=== PATIENT | female | born 1955 | race Caucasian/White ===

== ENCOUNTER 2017-09-28 09:08 | Day surgery (SDC) | payer MEDICARE, MEDICAID ==
[~2017-09-28 09:08] MED LIST: Lactated Ringers 1,000 ML IV SCH; Lidocaine 1%/Sod Bicarbonate in NS 8.4% 1 ML Syringe IV PRN; Sodium Chloride 0.9% 10 ML Syringe FLUSH PRN
[2017-09-28] MEDS ORDERED: Bupivacaine 0.25% 30 ML SDV ONE (09:47)
[2017-09-28] MEDS ORDERED: Triamcinolone Acetonide 40 MG/ML 1 ML MDV ONE (09:47)
--- NOTE | 2017-09-28 10:28 | PCM.PREANE ---
Preanesthetic Assessment - Anesthesia/Transfusion/Family Hx Anesthesia History: Prior Anesthesia Reaction (nausea) Family History of Anesthesia Reaction: No Transfusion History: No Prior Transfusion(s) - Review of Systems General: No Symptoms Pulmonary: No Symptoms Cardiovascular: No Symptoms Gastrointestinal: No Symptoms Neurological: No Symptoms, Numbness (carpal tunnel) Other: Reports: Thyroid Problems (hypo) - Physical Assessment NPO Status Date: 09/27/17 NPO Status Time: 20:00 Pulse: 82 O2 Sat by Pulse Oximetry: 98 Respiratory Rate: 10 Blood Pressure: 105/68 Temperature: 37.2 C Vital Signs: Last Vital Signs Temp 37.2 C 09/28/17 09:15 Pulse 82 09/28/17 09:15 Resp 10 L 09/28/17 09:15 BP 105/68 09/28/17 09:15 Pulse Ox 98 09/28/17 09:15 Height: 1.52 m Weight: 64.864 kg ASA Class: 2 Mental Status: Alert & Oriented x3 Airway Class: Mallampati = 1 Dentition: Reports: Normal Dentition Thyro-Mental Finger Breadths: 3 Mouth Opening Finger Breadths: 3 ROM/Head Extension: Limited/Partial (left side bulging disks) Lungs: Clear to Auscultation, Normal Respiratory Effort Cardiovascular: Regular Rate, Regular Rhythm, No Murmurs - Lab Values: Laboratory Last Values MRSA (PCR) Negative 09/22/17 09:46 - Allergies Allergies/Adverse Reactions: Allergies Allergy/AdvReac Type Severity Reaction Status Date / Time chocolate Allergy Abdominal Uncoded 09/28/17 10:16 Pain - Blood Blood Available: No Product(s) Available: None - Anesthesia Plan Pre-Op Medication Ordered: None - Acknowledgements Anesthesia Type Planned: VICTOR HUGO Pt an Appropriate Candidate for the Planned Anesthesia: Yes Alternatives and Risks of Anesthesia Discussed w Pt/Guardian: Yes Pt/Guardian Understands and Agrees with Anesthesia Plan: Yes PreAnesthesia Questionnaire HEENT History: Reports: Other (See Below) Other HEENT History: sinus infection, transient retinal artery occlusion Cardiovascular History: Reports: High Cholesterol Respiratory History: Reports: Asthma, Other (See Below) Other Respiratory History: bronchitits, dypsnea, shortness of breath Gastrointestinal History: Reports: Chronic Constipation, Irritable Bowel Syndrome, Other (See Below) Other Gastrointestinal History: epigastric pain, increased liver enzymes Genitourinary History: Reports: None 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: Other (See Below) Other OB/BYN History: atrophic vaginitis, genital herpes Musculoskeletal History: Reports: Back Pain, Chronic, Other (See Below) Other Musculoskeletal History: cervical disc bulge, chronic shoulder pain, myofascial pain, neck pain, right thumb pain Neurological History: Reports: Other (See Below) Other Neuro History: head trauma, vertigo Psychiatric History: Reports: Anxiety, Depression Endocrine/Metabolic History: Reports: Diabetes, Type II, Hypothyroidism Hematologic History: Reports: None Immunologic History: Reports: None Oncologic (Cancer) History: Reports: None Dermatologic History: Reports: Other (See Below) Other Dermatologic History: seborrheic keratosis, oral hepres simplex - Past Surgical History Head Surgeries/Procedures: Reports: None Cardiovascular Surgical History: Reports: None Respiratory Surgical History: Reports: None GI Surgical History: Reports: Cholecystectomy Female Surgical History: Reports: None Male Surgical History: Reports: None Endocrine Surgical History: Reports: None Neurological Surgical History: Reports: None Musculoskeletal Surgical History: Reports: Shoulder Surgery Oncologic Surgical History: Reports: None - SUBSTANCE USE Smoking Status *Q: Never Smoker Tobacco Use Within Last Twelve Months: No Second Hand Smoke Exposure: No Days Per Week of Alcohol Use: 1 Number of Drinks Per Day: 1 Total Drinks Per Week: 1 Recreational Drug Use History: No - HOME MEDS Home Medications: Home Meds Albuterol/Ipratropium [Combivent Respimat] 2 puff INH QID PRN 09/27/17 [History] Amitriptyline [Elavil] 10 mg PO BEDTIME 09/27/17 [History] Cholecalciferol (Vitamin D3) [Vitamin D3] 400 units PO DAILY 09/27/17 [History] Citalopram Hydrobromide [Celexa] 40 mg PO DAILY 09/27/17 [History] Cyclobenzaprine [Flexeril] 10 mg PO TID PRN 09/27/17 [History] Dicyclomine Hcl [IJD: Dicyclomine] 20 mg PO TID PRN 09/27/17 [History] Estradiol [Estrace 0.01% Vaginal Crm] 1 applic VAG Q48H 09/27/17 [History] Famciclovir 250 mg PO BID 09/27/17 [History] Lidocaine [Lidocaine 5% Paraben-Free] 1 patch TOP DAILY 09/27/17 [History] Lutein/Zeaxanthin [Lutein-Zeaxanthin 25-5 mg Sfgl] 1 cap PO DAILY 09/27/17 [ History] Magnesium 400 mg PO DAILY 09/27/17 [History] Omeprazole 20 mg PO DAILY 09/27/17 [History] Triamcinolone Acetonide [Triamcinolone Acetonide 0.1% Crm] 1 dose TOP TID PRN [History] atorvaSTATin [Lipitor] 20 mg PO DAILY 09/27/17 [History] buPROPion [Wellbutrin SR] 100 mg PO DAILY 09/27/17 [History] clonazePAM [Clonazepam] 1 mg PO BID 09/27/17 [History] Hydrocodone/Acetaminophen [Shelbiana 5-325 Tablet] 1 - 2 each PO Q6H PRN #10 tablet 09/28/17 [Rx] - CURRENT (IN HOUSE) MEDS Current Meds: Current Medications Lactated Ringer's (Ringers, Lactated) 1,000 mls @ 125 mls/hr IV ASDIRECTED RONNY Stop: 09/28/17 23:00 Lidocaine/Sodium Bicarbonate (Buffered Lidocaine 1% In Ns 8.4%) 0.25 ml IV ONETIME PRN PRN Reason: Prior to IV Start Stop: 09/28/17 18:00 Sodium Chloride (Saline Flush) 10 ml FLUSH ASDIRECTED PRN PRN Reason: Keep Vein Open Stop: 09/28/17 18:00 Discontinued Medications Bupivacaine HCl (Marcaine 0.25%) Confirm Administered Dose 30 ml .ROUTE .STK- MED ONE Stop: 09/28/17 09:48 Triamcinolone Acetonide (Kenalog-40) Confirm Administered Dose 40 mg .ROUTE .STK -MED ONE Stop: 09/28/17 09:48
[2017-09-28] MEDS ORDERED: Scopolamine 1 MG Transdermal Patch TOP ONE (10:45)
[2017-09-28] MEDS ORDERED: Lidocaine 0.5% 50 ML SDV ONE (12:22)
[2017-09-28] MEDS ORDERED: Sodium Bicarbonate 8.4% 50 MEQ/50 ML SDV ONE (12:22)
[2017-09-28] MEDS ORDERED: fentaNYL 100 MCG/2 ML SDV ONE (12:23)
[2017-09-28] MEDS ORDERED: Midazolam 1 MG/ML 2 ML SDV ONE (12:24)
[2017-09-28] MEDS ORDERED: Propofol 200 MG/20 ML SDV ONE (12:25)
--- NOTE | 2017-09-28 13:20 | PCM48HPAN ---
Post Anesthesia Note - EVALUATION WITHIN 48HRS OF ANESTHETIC Vital Signs in Normal Range: Yes Patient Participated in Evaluation: Yes Respiratory Function Stable: Yes Airway Patent: Yes Cardiovascular Function Stable: Yes Hydration Status Stable: Yes Pain Control Satisfactory: Yes Nausea and Vomiting Control Satisfactory: Yes Mental Status Recovered: Yes
--- NOTE | 2017-10-04 12:49 | PCM.OPNOTE ---
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
--- NOTE | 2017-10-04 13:20 | OR ---
DATE OF OPERATION: 09/28/2017 SURGEON: Luke Ruelas MD OPERATIVE PROCEDURE: Right carpal tunnel release with right basilar thumb joint injection. PREOPERATIVE DIAGNOSIS: Right median nerve compression neuropathy with right basilar thumb joint pain. POSTOPERATIVE DIAGNOSIS: Right median nerve compression neuropathy with right basilar thumb joint pain. ANESTHESIA: Regional Blue block. ANESTHESIA PROVIDER: Arnoldo Damon CRNA. HAND FOLDER: Jeniffer Shultz PA-C. ESTIMATED BLOOD LOSS: 5 mL. COMPLICATIONS: None. CONDITION: Stable. DESCRIPTION OF PROCEDURE: The patient was identified in the preoperative holding area. Proper site was marked and identified by the surgeon. The patient was taken back to the operating theater where after adequate anesthesia, the patient's right upper extremity was sterilely prepped and draped in the usual sterile fashion. OR time-out was performed. The patient did receive 2 g IV antibiotics. At this time, a standard incision was made using Castillo's cardinal line and ulnar border of the fourth digit. At this point, blunt dissection was taken down to the palmar cutaneous fascia. Palmar cutaneous fascia was incised. The transverse carpal ligament was then incised. Jeremiah elevator was placed deep to this and the transverse carpal ligament was then released all the way distally just stopping short of palmar arch. At this time, it was found to be adequately released. At this time, attention was turned proximally and was used the tenotomy scissors with the tips pointed ulnarly to protect the palmar cutaneous branch of the median nerve. The superficial forearm fascia as well as transverse carpal ligament was released. It was found to be released both proximally and distally. At this time, adequate saline was irrigated through the wound. A 4-0 nylon simple suture was used for closure of the skin. A sterile soft dressing was applied. The patient did also have a basilar thumb joint injection at the right wrist, under sterile technique, 1 mL of 40 mg Kenalog, and 1 mL of 0.25% Marcaine were injected at the right basilar thumb joint. The patient tolerated it well and will follow up in clinic. OPERATION PERFORMED: MMODAL /[id number]
== END 2017-09-28 14:45 | disposition home or self-care (01) ==
LOC: JD.SDS 09:08
PROVIDERS: ATTEND Orthopaedic Surgery
DX: G56.01 Carpal tunnel syndrome, right upper limb (principal); E11.9 Type 2 diabetes mellitus without complications; J01.90 Acute sinusitis, unspecified; E03.9 Hypothyroidism, unspecified; F41.9 Anxiety disorder, unspecified; J45.909 Unspecified asthma, uncomplicated; N95.2 Postmenopausal atrophic vaginitis; F32.9 Major depressive disorder, single episode, unspecified; A60.00 Herpesviral infection of urogenital system, unspecified; E78.00 Pure hypercholesterolemia, unspecified; K59.09 Other constipation; Z91.018 Allergy to other foods; Z79.899 Other long term (current) drug therapy; Z90.49 Acquired absence of other specified parts of digestive tract
CPT/HCPCS: 20600; 64721; 87641; A9270; J2250; J3010; J3301; J3490; J7120; 01810; J2704

== ENCOUNTER 2017-10-31 06:36 | Day surgery (SDC) | payer MEDICARE, MEDICAID ==
[~2017-10-31 06:36] MED LIST changes: +Albuterol 0.083% 2.5 MG/3 ML Neb Soln NEB SCH; -Lactated Ringers 1,000 ML IV SCH; +Lidocaine 1%/Sod Bicarbonate in NS 8.4% 1 ML Syringe IDERM PRN; -Lidocaine 1%/Sod Bicarbonate in NS 8.4% 1 ML Syringe IV PRN
[2017-10-31] MEDS ORDERED: Sodium Chloride 0.9% 50 ML SDV ONE (07:05)
[2017-10-31] MEDS ORDERED: Lidocaine 1% with EPINEPHrine 1:100,000 20 ML MDV ONE (07:05)
[2017-10-31] MEDS: Lactated Ringers 1,000 ML IV SCH ×2 (07:15→12:39)
[2017-10-31] MEDS ORDERED: Scopolamine 1 MG Transdermal Patch TOP ONE (07:24)
[2017-10-31] MEDS ORDERED: Lidocaine 1% 4 ML ONE (07:30)
[2017-10-31] MEDS ORDERED: Rocuronium 50 MG/5 ML Vial ONE (07:30)
[2017-10-31] MEDS ORDERED: Ondansetron 4 MG/2 ML SDV ONE (07:30)
--- NOTE | 2017-10-31 07:30 | PCM.PREANE ---
Preanesthetic Assessment - Anesthesia/Transfusion/Family Hx Anesthesia History: Prior Anesthesia Reaction (nausea) Type of Anesthesia Reaction: Excessive Nausea/Vomiting Family History of Anesthesia Reaction: No Transfusion History: No Prior Transfusion(s) - Review of Systems General: No Symptoms Pulmonary: No Symptoms Cardiovascular: No Symptoms Gastrointestinal: No Symptoms, Other (IBS) Neurological: No Symptoms Other: Reports: Diabetes (pre), Neck Pain (left neck pain- 2 bulging discs) - Physical Assessment NPO Status Date: 10/30/17 NPO Status Time: 20:30 Pulse: 71 O2 Sat by Pulse Oximetry: 93 Respiratory Rate: 16 Blood Pressure: 113/83 Temperature: 98.9 F Height: 5 ft Weight: 66 kg ASA Class: 2 Mental Status: Alert & Oriented x3 Airway Class: Mallampati = 1 Dentition: Reports: Normal Dentition Thyro-Mental Finger Breadths: 3 Mouth Opening Finger Breadths: 3 ROM/Head Extension: Limited/Partial (not turn to left) Lungs: Clear to Auscultation, Normal Respiratory Effort Cardiovascular: Regular Rate, Regular Rhythm - Lab Values: 10/19/17 Hgb 14.2 Plt 284 Lytes WNL BUN 18 Cr 1.2 - Allergies Allergies/Adverse Reactions: Allergies Allergy/AdvReac Type Severity Reaction Status Date / Time No Known Allergies Allergy Verified 10/30/17 14:09 - Blood Blood Available: Yes - Acknowledgements Anesthesia Type Planned: General Anesthesia Pt an Appropriate Candidate for the Planned Anesthesia: Yes Alternatives and Risks of Anesthesia Discussed w Pt/Guardian: Yes Pt/Guardian Understands and Agrees with Anesthesia Plan: Yes PreAnesthesia Questionnaire HEENT History: Reports: Other (See Below) Other HEENT History: sinus infection, transient retinal artery occlusion, glasses Cardiovascular History: Reports: High Cholesterol Respiratory History: Reports: Asthma, Other (See Below) Other Respiratory History: bronchitits, dypsnea, shortness of breath, mold exposure Gastrointestinal History: Reports: Chronic Constipation, GERD, Irritable Bowel Syndrome, Other (See Below) Other Gastrointestinal History: acute epigastric pain, increased liver enzymes Genitourinary History: Reports: None 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 (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 Below) Other OB/BYN History: atrophic vaginitis, genital herpes, , atrophic vaginitis, post menopausal bleeding, pelvic pain Musculoskeletal History: Reports: Back Pain, Chronic, Other (See Below) Other Musculoskeletal History: cervical disc bulge, chronic shoulder pain, myofascial pain, neck pain, right thumb pain Neurological History: Reports: Other (See Below) Other Neuro History: head trauma, vertigo, cervical disc bulge Psychiatric History: Reports: Anxiety, Depression Endocrine/Metabolic History: Reports: Diabetes, Type II, Hypothyroidism Hematologic History: Reports: None Immunologic History: Reports: None Oncologic (Cancer) History: Reports: None Dermatologic History: Reports: Other (See Below) Other Dermatologic History: seborrheic keratosis, oral hepres simplex - Past Surgical History Head Surgeries/Procedures: Reports: None Cardiovascular Surgical History: Reports: None Respiratory Surgical History: Reports: None GI Surgical History: Reports: Cholecystectomy, Colonoscopy Female Surgical History: Reports: None Male Surgical History: Reports: None Endocrine Surgical History: Reports: None Neurological Surgical History: Reports: None Musculoskeletal Surgical History: Reports: Shoulder Surgery, Other (See Below) Other Musculoskeletal Surgeries/Procedures:: carpal tunnel surgery Oncologic Surgical History: Reports: None Dermatological Surgical History: Reports: None - SUBSTANCE USE Smoking Status *Q: Never Smoker Tobacco Use Within Last Twelve Months: No Second Hand Smoke Exposure: Yes Days Per Week of Alcohol Use: 1 (or less) Number of Drinks Per Day: 1 Total Drinks Per Week: 1 Recreational Drug Use History: No - HOME MEDS Home Medications: Home Meds Albuterol/Ipratropium [Combivent Respimat] 2 puff INH QID PRN 09/27/17 [History] Amitriptyline [Elavil] 10 mg PO BEDTIME 09/27/17 [History] Cholecalciferol (Vitamin D3) [Vitamin D3] 400 units PO DAILY 09/27/17 [History] Citalopram Hydrobromide [Celexa] 40 mg PO DAILY 09/27/17 [History] Cyclobenzaprine [Flexeril] 10 mg PO TID PRN 09/27/17 [History] Dicyclomine Hcl [IJD: Dicyclomine] 20 mg PO TID PRN 09/27/17 [History] Estradiol [Estrace 0.01% Vaginal Crm] 1 applic VAG Q72H 09/27/17 [History] Famciclovir 250 mg PO BID 09/27/17 [History] Lidocaine [Lidocaine 5% Paraben-Free] 1 patch TOP DAILY 09/27/17 [History] Lutein/Zeaxanthin [Lutein-Zeaxanthin 25-5 mg Sfgl] 1 cap PO DAILY 09/27/17 [ History] Magnesium 400 mg PO DAILY 09/27/17 [History] Omeprazole 20 mg PO DAILY 09/27/17 [History] Triamcinolone Acetonide [Triamcinolone Acetonide 0.1% Crm] 1 dose TOP TID PRN [History] atorvaSTATin [Lipitor] 20 mg PO DAILY 09/27/17 [History] clonazePAM [Clonazepam] 1 mg PO BID 09/27/17 [History] Cyanocobalamin (Vitamin B-12) [Vitamin B-12] 1,000 mcg PO DAILY 10/30/17 [ History] Hydrocodone/Acetaminophen [Hydrocodon-Acetaminophn 10-325] 0.5 tab PO BID PRN [History] Levothyroxine Sodium 88 mcg PO DAILY 10/30/17 [History] Montelukast [Singulair] 10 mg PO DAILY 10/30/17 [History] - CURRENT (IN HOUSE) MEDS Current Meds: Current Medications Albuterol (Proventil Neb Soln) 2.5 mg NEB ONETIME RONNY Stop: 10/31/17 16:00 Lactated Ringer's (Ringers, Lactated) 1,000 mls @ 125 mls/hr IV ASDIRECTED RONNY Stop: 10/31/17 23:00 Lidocaine/Sodium Bicarbonate (Buffered Lidocaine 1% In Ns 8.4%) 0.25 ml IDERM ONETIME PRN PRN Reason: Prior to IV Start Stop: 10/31/17 18:00 Sodium Chloride (Saline Flush) 10 ml FLUSH ASDIRECTED PRN PRN Reason: Keep Vein Open Stop: 10/31/17 18:00 Discontinued Medications Cefazolin Sodium (Ancef) Confirm Administered Dose 2 gm .ROUTE .STK-MED ONE Stop: 10/31/17 07:32 Dexamethasone (Dexamethasone) Confirm Administered Dose 20 mg .ROUTE .STK-MED ONE Stop: 10/31/17 07:32 Fentanyl (Sublimaze) Confirm Administered Dose 250 mcg .ROUTE .STK-MED ONE Stop: 10/31/17 07:32 Lidocaine HCl (Xylocaine-Mpf 1%) Confirm Administered Dose 4 mls @ as directed .ROUTE .STK-MED ONE Stop: 10/31/17 07:31 Ketorolac Tromethamine (Toradol) Confirm Administered Dose 30 mg .ROUTE .STK- MED ONE Stop: 10/31/17 07:32 Lidocaine/Epinephrine (Xylocaine 1% With Epinephrine 1:100,000) Confirm Administered Dose 20 ml .ROUTE .STK-MED ONE Stop: 10/31/17 07:06 Midazolam HCl (Versed 1 Mg/Ml) Confirm Administered Dose 2 mg .ROUTE .STK-MED ONE Stop: 10/31/17 07:32 Ondansetron HCl (Zofran) Confirm Administered Dose 4 mg .ROUTE .STK-MED ONE Stop: 10/31/17 07:31 Propofol (Diprivan 20 Ml) Confirm Administered Dose 200 mg .ROUTE .STK-MED ONE Stop: 10/31/17 07:32 Rocuronium Decherd (Zemuron) Confirm Administered Dose 50 mg .ROUTE .STK-MED ONE Stop: 10/31/17 07:31 Sodium Chloride (Normal Saline) Confirm Administered Dose 50 ml .ROUTE .[employer]-MED ONE Stop: 10/31/17 07:06
[2017-10-31] MEDS ORDERED: Ketorolac 30 MG/ML SDV ONE (07:31)
[2017-10-31] MEDS ORDERED: fentaNYL 250 MCG/5 ML SDV ONE (07:31)
[2017-10-31] MEDS ORDERED: Midazolam 1 MG/ML 2 ML SDV ONE (07:31)
[2017-10-31] MEDS ORDERED: Dexamethasone 4 MG/ML 5 ML MDV ONE (07:31)
[2017-10-31] MEDS ORDERED: Propofol 200 MG/20 ML SDV ONE (07:31)
[2017-10-31] MEDS ORDERED: ceFAZolin 1 GM Vial ONE (07:31)
[2017-10-31] MEDS ORDERED: Meperidine PF 50 MG/ML Syringe IVPUSH PRN (08:06)
[2017-10-31] MEDS ORDERED: fentaNYL 100 MCG/2 ML SDV IVPUSH PRN (08:06)
[2017-10-31] MEDS ORDERED: HYDROmorphone 0.5 MG/0.5 ML Syringe IVPUSH PRN (08:06)
[2017-10-31] MEDS ORDERED: Ondansetron 4 MG/2 ML SDV IVPUSH PRN (08:06)
[2017-10-31] MEDS ORDERED: Lactated Ringers 1,000 ML ONE (08:39)
[2017-10-31] MEDS ORDERED: Glycopyrrolate 0.2 MG/ML SDV ONE (08:54)
[2017-10-31] MEDS ORDERED: Neostigmine Methylsulfate 10 MG/10 ML MDV ONE (08:54)
--- NOTE | 2017-10-31 09:05 | PCM.OPNOTE ---
- General Post-Op/Procedure Note Date of Surgery/Procedure: 10/31/17 Operative Procedure(s): Total vaginal hysterectomy bilateral salpingo- oophorectomy 82179 Pre Op Diagnosis: Postmenopausal bleeding N95.0 Post-Op Diagnosis: Same Anesthesia Technique: General ET Tube Primary Surgeon: Vitaliy Calix Secondary Surgeon: Andre Garduno Anesthesia Provider: Kyrie Taylor Group Product Manager: Ayan Hinton Reason Group Product Manager Was Necessary: Difficult nature of surgery, provide retraction, decrease comorbidity and co- mortality Role of Group Product Manager: Difficult nature of surgery, provide retraction, decrease comorbidity and co- mortality Fluid Replacement, Intraop: 1,000 Output, Urine Amount: 200 EBL in mLs: 100 Drain/Tube Comments:: None Complications: None Condition: Good Free Text/Narrative:: Intake & Output 10/30/17 10/31/17 10/31/17 22:59 06:59 14:59 Output Total 150 Balance -150 Patient was placed under general anesthesia with endotracheal intubation in the low dorsal lithotomy position and prepared and draped in a sterile fashion. SCDs in place and functioning prior surgery. Ancef 2 g given intravenously prior surgery. Uterus was grasped with double-tooth tenaculum and 20 mL of 0.25 % lidocaine with epinephrine injected in multiple confluent areas around the cervix. The uterus was circumscribed and utilizing moist opened up 4 x 4 tissue pushed cephalad posterior colpotomy was performed without difficulty. Utilizing the LigaSure the uterosacral cardinal ligament bundle on the left side was crossclamped activated and incised same procedure carried out in the right side. Proceeding in a pedicle fashion cephalad crossclamping activating incising until the triple pedicle was approximated. The fundus of the uterus and the drum posteriorly and crossclamping the triple pedicle with Javier clamps and incising the uterus was removed. Grasping the left tube and ovary and crossclamping the infundibulopelvic ligament with the LigaSure activating and incising hemostasis was normal. Same procedure carried out on the right side. The uterus cervix tubes and ovaries removed without difficulty. Examination of the areas of the infundibulopelvic ligament showed no bleeding. The posterior cuff was closed with a running locking suture of 0 Monocryl. Hemostasis was again evaluated and found no bleeding. The infundibulopelvic ligament area showed no bleeding bilaterally. Sponge, needle, sharp, packs and 4 x 4's were counted and correct 2. The anterior cuff was approximated to the posterior cuff utilizing 0 Monocryl running locking suture. Patient was transported postanesthesia care unit in satisfactory condition. No blood transfusions were required. FAMILY members present to discuss surgery results with.. Prescription for Percocet 5/325 dispense 15 sig 1 by mouth every 6 hours when necessary pain.
--- NOTE | 2017-10-31 09:25 | PCM.POSTAN ---
POST ANESTHESIA ASSESSMENT - MENTAL STATUS Mental Status: Alert, Oriented - VITAL SIGNS Pulse Rate: 105 SaO2: 93 Resp Rate: 19 Blood Pressure: 123/61 Temperature: 98.2 F - RESPIRATORY Respiratory Status: Respiratory Rate WNL, Airway Patent, O2 Saturation Stable, Supplemental Oxygen - CARDIOVASCULAR CV Status: Pulse Rate WNL, Blood Pressure Stable - GASTROINTESTINAL GI Status: No Symptoms - PAIN Pain Score: 0 - POST OP HYDRATION Hydration Status: Adequate & Stable
[2017-10-31] MEDS: Acetaminophen/oxyCODONE 325-5 MG Tab PO PRN ×2 (10:30→12:43)
--- NOTE | 2017-10-31 13:12 | PCM48HPAN ---
Post Anesthesia Note - EVALUATION WITHIN 48HRS OF ANESTHETIC Vital Signs in Normal Range: Yes Patient Participated in Evaluation: Yes Respiratory Function Stable: Yes Airway Patent: Yes Cardiovascular Function Stable: Yes Hydration Status Stable: Yes Pain Control Satisfactory: Yes Nausea and Vomiting Control Satisfactory: Yes Mental Status Recovered: Yes Pulse Rate: 105 Resp Rate: 16 Temperature: 98.2 F Blood Pressure: 123/61
== END 2017-10-31 14:50 | disposition home or self-care (01) ==
LOC: EDBD 06:36 → JD.SDS 06:36
PROVIDERS: ATTEND Obstetrics & Gynecology
DX: D25.9 Leiomyoma of uterus, unspecified (principal); N80.0 Endometriosis of uterus; J45.909 Unspecified asthma, uncomplicated; F41.9 Anxiety disorder, unspecified; F32.9 Major depressive disorder, single episode, unspecified; E03.9 Hypothyroidism, unspecified; E11.9 Type 2 diabetes mellitus without complications; E78.5 Hyperlipidemia, unspecified; Z91.018 Allergy to other foods; Z79.899 Other long term (current) drug therapy; Z72.0 Tobacco use
CPT/HCPCS: 36415; 58262; 86850; 86900; 86901; 94640; A9270; J0690; J1100; J1885; J2250; J2405; J2710; J3010; J3490; J7120; 00944; 88307; J2001; J2704

== ENCOUNTER 2018-01-04 07:22 | Day surgery (SDC) | payer MEDICARE, MEDICAID ==
[~2018-01-04 07:22] MED LIST changes: -Albuterol 0.083% 2.5 MG/3 ML Neb Soln NEB SCH; +Ketamine 500 mg/10 ML MDV ONE; +Lactated Ringers 1,000 ML IV SCH; +Lidocaine 0.5% 50 ML SDV ONE; +Lidocaine 1% 4 ML ONE; +Midazolam 1 MG/ML 2 ML SDV ONE; +Ondansetron 4 MG/2 ML SDV ONE; +Propofol 200 MG/20 ML SDV ONE; +Sodium Bicarbonate 8.4% 50 MEQ/50 ML SDV ONE; +fentaNYL 100 MCG/2 ML SDV ONE
[2018-01-04] MEDS ORDERED: Bupivacaine 0.25% 30 ML SDV ONE (07:37)
--- NOTE | 2018-01-04 07:52 | PCM.PREANE ---
Preanesthetic Assessment - Anesthesia/Transfusion/Family Hx Anesthesia History: Prior Anesthesia Reaction (nausea) Type of Anesthesia Reaction: Excessive Nausea/Vomiting Family History of Anesthesia Reaction: No Transfusion History: No Prior Transfusion(s) - Review of Systems General: Other (Radha states she has a little bit of a scratchy throat no other symptoms. ) Pulmonary: Shortness of Breath (Not today, but sometimes she has trouble. ), Cough (Chronic, history of mold exposure. ) Gastrointestinal: Abdominal Pain Neurological: Other (Chronic Back Pain) Other: Reports: Thyroid Problems, Anxiety - Physical Assessment NPO Status Date: 01/03/18 NPO Status Time: 21:00 Pulse: 89 O2 Sat by Pulse Oximetry: 95 Respiratory Rate: 16 Blood Pressure: 113/98 Temperature: 36.8 C Weight: 66.678 kg ASA Class: 3 Mental Status: Alert & Oriented x3 Airway Class: Mallampati = 1 Dentition: Reports: Normal Dentition Thyro-Mental Finger Breadths: 2 Mouth Opening Finger Breadths: 3 ROM/Head Extension: Full Lungs: Clear to Auscultation, Normal Respiratory Effort, Wheezing (Noted in left upper chest. Neb ordered. Has a nebulizer machine at home uses as needed for breathing. Since mold exposure. ) Cardiovascular: Regular Rate, Regular Rhythm - Lab Values: Laboratory Last Values MRSA (PCR) Negative 12/27/17 15:09 - Imaging/EKG Impressions: Previous EKG was NSR in August. - Allergies Allergies/Adverse Reactions: Allergies Allergy/AdvReac Type Severity Reaction Status Date / Time No Known Allergies Allergy Verified 01/03/18 16:05 - Anesthesia Plan Pre-Op Medication Ordered: Anxiolytic - Acknowledgements Anesthesia Type Planned: VICTOR HUGO Pt an Appropriate Candidate for the Planned Anesthesia: Yes Alternatives and Risks of Anesthesia Discussed w Pt/Guardian: Yes Pt/Guardian Understands and Agrees with Anesthesia Plan: Yes Additional Comments: Patient aware that with her chronic respiratory condition she is at a higher risk for respiratory compromise. She understands. Following her hysterectomy she had some trouble with her breathing. She did get to go home that day, but it took awhile. She will have a nebulizer preop and an IH spirometer for post op. PreAnesthesia Questionnaire HEENT History: Reports: Impaired Vision, Other (See Below) Other HEENT History: sinus infection, transient retinal artery occlusion Cardiovascular History: Reports: High Cholesterol Respiratory History: Reports: Asthma, Other (See Below) Other Respiratory History: bronchitits, dypsnea, shortness of breath Gastrointestinal History: Reports: Chronic Constipation, GERD, Irritable Bowel Syndrome, Other (See Below) Other Gastrointestinal History: epigastric pain, increased liver enzymes Genitourinary History: Reports: None [employer] WORKER History: Reports: Other (See Below) Other OB/BYN History: atrophic vaginitis, genital herpes Musculoskeletal History: Reports: Back Pain, Chronic, Other (See Below) Other Musculoskeletal History: cervical disc bulge, chronic shoulder pain, myofascial pain, neck pain, right thumb pain Neurological History: Reports: Other (See Below) Other Neuro History: head trauma, vertigo Psychiatric History: Reports: Anxiety, Depression Endocrine/Metabolic History: Reports: Diabetes, Type II, Hypothyroidism Hematologic History: Reports: None Immunologic History: Reports: None Oncologic (Cancer) History: Reports: None Dermatologic History: Reports: Other (See Below) Other Dermatologic History: seborrheic keratosis, oral hepres simplex - Past Surgical History Head Surgeries/Procedures: Reports: None Cardiovascular Surgical History: Reports: None Respiratory Surgical History: Reports: None GI Surgical History: Reports: Cholecystectomy Female Surgical History: Reports: None, Hysterectomy, Oophorectomy Male Surgical History: Reports: None Endocrine Surgical History: Reports: None Neurological Surgical History: Reports: None Musculoskeletal Surgical History: Reports: Shoulder Surgery Other Musculoskeletal Surgeries/Procedures:: carpal tunnel surgery Oncologic Surgical History: Reports: None Dermatological Surgical History: Reports: None - SUBSTANCE USE Smoking Status *Q: Never Smoker Tobacco Use Within Last Twelve Months: No Second Hand Smoke Exposure: Yes Days Per Week of Alcohol Use: 1 Number of Drinks Per Day: 1 Total Drinks Per Week: 1 Recreational Drug Use History: No - HOME MEDS Home Medications: Home Meds Albuterol/Ipratropium [Combivent Respimat] 2 puff INH QID PRN 09/27/17 [History] Amitriptyline [Elavil] 10 mg PO BEDTIME 09/27/17 [History] Cholecalciferol (Vitamin D3) [Vitamin D3] 400 units PO DAILY 09/27/17 [History] Citalopram Hydrobromide [Celexa] 40 mg PO DAILY 09/27/17 [History] Cyclobenzaprine [Flexeril] 10 mg PO TID PRN 09/27/17 [History] Dicyclomine Hcl [IJD: Dicyclomine] 20 mg PO TID PRN 09/27/17 [History] Famciclovir 250 mg PO BID 09/27/17 [History] Lidocaine [Lidocaine 5% Paraben-Free] 1 patch TOP DAILY 09/27/17 [History] Lutein/Zeaxanthin [Lutein-Zeaxanthin 25-5 mg Sfgl] 1 cap PO DAILY 09/27/17 [ History] Magnesium 400 mg PO DAILY 09/27/17 [History] Omeprazole 20 mg PO DAILY 09/27/17 [History] Triamcinolone Acetonide [Triamcinolone Acetonide 0.1% Crm] 1 dose TOP TID PRN [History] atorvaSTATin [Lipitor] 20 mg PO DAILY 09/27/17 [History] clonazePAM [Clonazepam] 1 mg PO BID 09/27/17 [History] Cyanocobalamin (Vitamin B-12) [Vitamin B-12] 1,000 mcg PO DAILY 10/30/17 [ History] Levothyroxine Sodium 88 mcg PO DAILY 10/30/17 [History] Montelukast [Singulair] 10 mg PO DAILY 10/30/17 [History] Levothyroxine 75 mcg PO DAILY 01/03/18 [History] buPROPion [Wellbutrin] 100 mg PO DAILY 01/03/18 [History] Acetaminophen/HYDROcodone [Hardin 325-5 MG] 1 - 2 tab PO Q6H PRN #30 tablet 01/04 [Rx] - CURRENT (IN HOUSE) MEDS Current Meds: Current Medications Albuterol (Proventil Neb Soln) 2.5 mg NEB ONETIME ONE Stop: 01/04/18 08:01 Lactated Ringer's (Ringers, Lactated) 1,000 mls @ 125 mls/hr IV ASDIRECTED RONNY Stop: 01/04/18 23:00 Lidocaine/Sodium Bicarbonate (Buffered Lidocaine 1% In Ns 8.4%) 0.25 ml IDERM ONETIME PRN PRN Reason: Prior to IV Start Stop: 01/04/18 18:00 Scopolamine (Transderm-Scop) 1.5 mg TOP ONETIME ONE Stop: 01/04/18 07:47 Sodium Chloride (Saline Flush) 10 ml FLUSH ASDIRECTED PRN PRN Reason: Keep Vein Open Stop: 01/04/18 18:00 Discontinued Medications Bupivacaine HCl (Marcaine 0.25%) Confirm Administered Dose 30 ml .ROUTE .STK- MED ONE Stop: 01/04/18 07:38 Fentanyl (Sublimaze) Confirm Administered Dose 100 mcg .ROUTE .STK-MED ONE Stop: 01/04/18 07:19 Lidocaine HCl (Xylocaine-Mpf 1%) Confirm Administered Dose 4 mls @ as directed .ROUTE .STK-MED ONE Stop: 01/04/18 07:19 Ketamine HCl (Ketalar) Confirm Administered Dose 500 mg .ROUTE .STK-MED ONE Stop: 01/04/18 07:19 Lidocaine HCl (Xylocaine-Mpf 0.5%) Confirm Administered Dose 50 ml .ROUTE .STK- MED ONE Stop: 01/04/18 07:20 Midazolam HCl (Versed 1 Mg/Ml) Confirm Administered Dose 2 mg .ROUTE .STK-MED ONE Stop: 01/04/18 07:19 Ondansetron HCl (Zofran) Confirm Administered Dose 4 mg .ROUTE .STK-MED ONE Stop: 01/04/18 07:19 Propofol (Diprivan 20 Ml) Confirm Administered Dose 600 mg .ROUTE .STK-MED ONE Stop: 01/04/18 07:19 Sodium Bicarbonate (Sodium Bicarbonate 8.4%) Confirm Administered Dose 50 meq .ROUTE .STK-MED ONE Stop: 01/04/18 07:20
[2018-01-04] MEDS ORDERED: Albuterol 0.083% 2.5 MG/3 ML Neb Soln NEB ONE (08:00)
[2018-01-04] MEDS ORDERED: Scopolamine 1.5 MG Transdermal Patch TOP ONE (08:00)
[2018-01-04] MEDS ORDERED: Albuterol 6.7 GM Inhaler INH ONE (09:03)
[2018-01-04] MEDS ORDERED: ceFAZolin 1 GM Vial ONE ×2 (09:41)
[2018-01-04] MEDS ORDERED: fentaNYL 100 MCG/2 ML SDV IVPUSH PRN (10:10)
--- NOTE | 2018-01-04 10:13 | PCM48HPAN ---
Post Anesthesia Note - EVALUATION WITHIN 48HRS OF ANESTHETIC Vital Signs in Normal Range: Yes Patient Participated in Evaluation: Yes Respiratory Function Stable: Yes Airway Patent: Yes Cardiovascular Function Stable: Yes Hydration Status Stable: Yes Pain Control Satisfactory: Yes Nausea and Vomiting Control Satisfactory: Yes Mental Status Recovered: Yes Pulse Rate: 89 SaO2: 99 Resp Rate: 18 Temperature: 36.4 C Blood Pressure: 105/50
--- NOTE | 2018-01-04 10:19 | CR ---
Right hand: Six fluoroscopic spot views were obtained of the right hand centered to the metacarpal levels. Study shows revision of previous surgery at the first and second metacarpals. Fluoroscopy time given as 29.7 seconds. Impression: 1. Procedural study. Diagnostic code #2
[2018-01-04] MEDS ORDERED: Acetaminophen/HYDROcodone 325-5 MG Tab PO SCH (10:43)
--- NOTE | 2018-01-04 22:51 | PCM.OPNOTE ---
- General Post-Op/Procedure Note Date of Surgery/Procedure: 01/04/18 Operative Procedure(s): revision of right first carpo-metacarpal interposition arthroplasty with tight rope fixation Pre Op Diagnosis: failed right thumb carpometacarpal interposition arthoplasty Post-Op Diagnosis: Same Anesthesia Technique: MAC, Regional Block Primary Surgeon: Luke Ruelas Anesthesia Provider: Maribell Daniels Pocket Machine Operator: Jeniffer Shultz EBL in mLs: 10 Complications: None Condition: Good Free Text/Narrative:: [id number] Intake & Output 01/04/18 01/04/18 01/04/18 06:59 14:59 22:59 Intake Total 150 Balance 150
--- NOTE | 2018-01-04 23:25 | OR ---
DATE OF OPERATION: 01/04/2018 SURGEON: Luke Ruelas MD OPERATION PERFORMED: Revision of right first carpometacarpal joint, TightRope fixation PREOPERATIVE DIAGNOSIS: Right failed first carpometacarpal joint CMC joint arthroplasty. POSTOPERATIVE DIAGNOSIS: Right failed first carpometacarpal joint CMC joint arthroplasty. ANESTHESIA TECHNIQUE: Regional Blue block with MAC. MANUFACTURER AGENT: Jeniffer Shultz PA-C. ANESTHESIA PROVIDER: Fe Davison. ESTIMATED BLOOD LOSS: Roughly 10 mL. COMPLICATIONS: None. CONDITION: Stable. DESCRIPTION OF PROCEDURE: The patient was identified in the preoperative holding area. Proper site was marked and identified by the surgeon. The patient was taken back to the operating theater where after adequate anesthesia, the patient's right upper extremity underwent a [place] block and was exsanguinated at that time. The right upper extremity was then sterilely prepped and draped in the usual sterile fashion. OR time-out was performed. The patient had received 2 g IV Ancef before the block. At this time, incision was made over the dorsal region of the first CMC joint. This was taken down to the base of the first metacarpal. This was then incised in the previous capsulotomy was performed where the previous interposition had been. There was noted to be a large amount of suture. This was then removed at this time. The previous Endobutton was identified on the first metacarpal, and this was resected, and deep hardware removal of the first metacarpal was then done at this time of the Endobutton. All excess bony prominences were resected from the base of the first metacarpal as well as the any remaining portions of the bony exostoses that were noted around the region of the previous interposition arthroplasty. At this time, under direct C-arm fluoroscopy, it was noted that it could be reduced to the base of the second metacarpal with good interposition noted with no bony prominences touching at the base first metacarpal. At this time, a guide pin was placed from the radial side of the base of the first metacarpal up into the second metacarpal shaft. This was then visualized under direct C-arm fluoroscopy. It was noted to be an adequate spot as well as good reduction of the first metacarpal through the base of the second metacarpal. At this time, the suture limbs were brought through with a guide pin from the first metacarpal into the second metacarpal, and the suture limbs were shuttled. EndoButton was then placed at the base of the first metacarpal. The suture limbs were cut on the second metacarpal, Endobutton was applied to the second metacarpal shaft. Tension was then held, and it was placed in a proper position, and that the suture limbs were tied on the second metacarpal. It was noted to have good bounce back, but there was no touching of bony prominences any more at this time with good sabianist at the base of the first and second metacarpals. At this time, it was found to be adequately reduced for the first and second metacarpal stabilization. At this time, adequate saline was irrigated through the wound. A 3-0 Vicryl was used subcutaneously, nylon was used for the skin. The patient was placed in a radial thumb spica splint and was sent to the PACU in stable condition. ANESTHESIA: MMODAL /[id number] [place]
== END 2018-01-04 11:30 | disposition home or self-care (01) ==
LOC: JD.SDS 07:22
PROVIDERS: ATTEND Orthopaedic Surgery
DX: T85.9XXA Unspecified complication of internal prosthetic device, implant and graft, initial encounter (principal); E03.9 Hypothyroidism, unspecified; F41.9 Anxiety disorder, unspecified; J45.909 Unspecified asthma, uncomplicated; F32.9 Major depressive disorder, single episode, unspecified; E78.5 Hyperlipidemia, unspecified; G47.00 Insomnia, unspecified; L82.0 Inflamed seborrheic keratosis; E11.9 Type 2 diabetes mellitus without complications; K21.9 Gastro-esophageal reflux disease without esophagitis; Z98.890 Other specified postprocedural states; Z91.040 Latex allergy status; Z79.899 Other long term (current) drug therapy
CPT/HCPCS: 25447; 76000; 87641; 94640; A9270; C1776; J0690; J2001; J2250; J2405; J3010; J3490; J7120; J2704

== ENCOUNTER 2022-07-04 09:29 | Emergency (ER) | payer MEDICARE, MEDICAID ==
[2022-07-04] MEDS ORDERED: Dextrose 5%-0.9% NaCl 1,000 ML IV SCH (10:45)
[2022-07-04 11:30] LABS: CORONAVIRUS COVID-19 NAA POSITIVE (NEGATIVE)
== END 2022-07-04 13:30 | disposition home or self-care (01) ==
LOC: JD.ED 09:29
DX: U07.1 COVID-19 (principal); J45.901 Unspecified asthma with (acute) exacerbation; E78.00 Pure hypercholesterolemia, unspecified; E11.9 Type 2 diabetes mellitus without complications; E03.9 Hypothyroidism, unspecified; Z79.899 Other long term (current) drug therapy; Z79.82 Long term (current) use of aspirin
CPT/HCPCS: 0240U; 36415; 71045; 80053; 83735; 85025; 85379; 86140; 96360; 96361; 99284; J7042

== ENCOUNTER 2023-06-25 06:50 | Emergency (ER) | payer MEDICARE, MEDICAID ==
[2023-06-25 07:33] LABS: BASOPHILS PERCENT AUTO 0.3 % (0.0-1.0); EOSINOPHILS ABSOLUTE AUTO 0.2 K/mm3 (0.0-0.4); EOSINOPHILS PERCENT AUTO 2.2 % (0.0-6.0); HEMATOCRIT 35.3 % (37.0-47.0); IMMATURE GRAN ABSOLUTE AUTO 0.03 K/mm3 (0.00-0.05); IMMATURE GRAN PERCENT AUTO 0.3 % (0.0-0.4); LYMPHOCYTES ABSOLUTE AUTO 2.2 K/mm3 (1.0-4.8); LYMPHOCYTES PERCENT AUTO 25.8 % (24.0-44.0); MEAN CORPUSCULAR HEMOGLOBIN 31.6 pg (28.0-32.0); MEAN CORPUSCULAR HGB CONC 33.4 g/dl (32.0-36.0); MEAN CORPUSCULAR VOLUME 94.4 fl (83.0-99.0); MEAN PLATELET VOLUME 9.3 fl (9.4-12.3); MONOCYTES ABSOLUTE AUTO 0.8 K/mm3 (0.0-0.8); NEUTROPHILS ABSOLUTE AUTO 5.4 K/mm3 (1.8-7.7); NEUTROPHILS PERCENT AUTO 62.4 % (41.0-71.0); PLATELET COUNT,PLT 273 K/mm3 (150-400); RED BLOOD CELL COUNT 3.74 M/mm3 (4.10-5.30); WHITE BLOOD CELL COUNT,WBC 8.58 K/mm3 (3.9-11.3)
[2023-06-25 07:35] LABS: BARBITURATE SCREEN,URINE NEGATIVE (CUTOFF=200); BENZODIAZEPINES SCREEN,URINE NEGATIVE (CUTOFF=150); BUPRENORPHINE SCREEN,URINE NEGATIVE (CUTOFF=10); METHADONE SCREEN, URINE NEGATIVE (CUTOFF=200); METHAMPHETAMINES SCREEN, URINE NEGATIVE (CUTOFF=500); OXYCODONE SCREEN,URINE NEGATIVE (CUT0FF=100); THC SCREEN,URINE 20 NG/ML NEGATIVE (CUTOFF=50)
[2023-06-25 07:37] LABS: AMPHETAMINES SCREEN, URINE NEGATIVE (CUTOFF=500)
[2023-06-25 07:47] LABS: HEMOGLOBIN 11.8 gm/dl (12.0-16.0)
[2023-06-25] MEDS ORDERED: ClonazePAM 0.5 MG Tab PO ONE (08:03)
[2023-06-25 08:07] LABS: ALBUMIN 3.2 g/dl (3.4-5.0); ANION GAP 12.3 (5-15); BILIRUBIN TOTAL 0.3 mg/dL (0.2-1.0); BUN/CREATININE RATIO 16.3 (14-18); CALCIUM 8.8 mg/dL (8.5-10.1); CREATININE 0.8 mg/dL (0.55-1.02); EST CRCL DRUG DOSING (CG) 49.69 mL/min; POTASSIUM,K 4.3 mEq/L (3.5-5.1); PROTEIN TOTAL,TP 6.4 g/dl (6.4-8.2); TSH 1.499 uIU/mL (0.358-3.74)
[2023-06-25] MEDS ORDERED: Formoterol/Mometasone 100-5 MCG 8.8 GM Inhaler IH STA (08:51)
[2023-06-25] MEDS ORDERED: traZODone 50 MG Tab PO ONE (10:42)
[2023-06-25] MEDS ORDERED: FLUoxetine 20 MG Cap PO SCH (10:45)
[2023-06-25] MEDS ORDERED: Formoterol/Mometasone 100-5 MCG 8.8 GM Inhaler IH SCH (21:00)
== END 2023-06-25 11:10 ==
LOC: JD.ED 06:50
DX: F41.9 Anxiety disorder, unspecified (principal); F32.A Depression, unspecified; R45.88 Nonsuicidal self-harm; E11.9 Type 2 diabetes mellitus without complications; J45.909 Unspecified asthma, uncomplicated; K21.9 Gastro-esophageal reflux disease without esophagitis; Z79.899 Other long term (current) drug therapy
CPT/HCPCS: 36415; 80053; 80143; 80179; 80306; 80307; 84443; 85025; 93005; 94640; 99285; A9270; 93010; 99284